=== PATIENT | male | born 1965 | race Caucasian/White ===

== ENCOUNTER 2019-05-24 20:24 | Emergency (ER) | payer OTHER ==
[~2019-05-24] VITALS: Ht 162.6 cm; Wt 94.1 kg
[2019-05-24 20:56] VITALS: Ht 162.6 cm; Wt 94.1 kg
[2019-05-24 21:40] LABS: BASOPHIL % 0.2 % (0-2); PLATELET COUNT 303 x10^3mcL (130-400); RED CELL DISTRIBUTION WIDTH 13.8 % (11.5-14.5)
[2019-05-24 21:42] LABS: CALCIUM 8.9 mg/dL (8.5-10.1); CARBON DIOXIDE 29.9 mmol/L (21-32); CHLORIDE SERUM 103 mmol/L (98-107); CREATININE SERUM 1.1 mg/dL (0.7-1.3); GFR1 > 60 mL/min; GLUCOSE SERUM 94 mg/dL (74-106); POTASSIUM SERUM 3.4 mmol/L (3.5-5.1); SODIUM SERUM 141 mmol/L (136-145)
[2019-05-24 21:47] LABS: ALKALINE PHOSPHATASE 95 U/L (46-116); ALT/SGPT 54 U/L (16-63); AMYLASE 37 U/L (25-115); AST/SGOT 32 U/L (15-37); BILIRUBIN TOTAL 0.4 mg/dL (0.20-1.00); LIPASE 73 IU/L (73-393); TOTAL PROTEIN, SERUM 7.3 g/dL (6.4-8.2)
[2019-05-24 21:48] LABS: ALBUMIN 3.1 g/dL (3.4-5.0)
[2019-05-24 22:45] VITALS: BP 138/73
== END 2019-05-24 22:45 | disposition home or self-care (01) ==
LOC: ED 20:24
PROVIDERS: Emergency Medicine
DX: K59.00 Constipation, unspecified (principal); R35.0 Frequency of micturition
CPT/HCPCS: 36415; J1885